=== PATIENT | male | born 1975 | race Caucasian/White ===

== ENCOUNTER 2025-07-13 08:00 | Inpatient (IN) | payer OTHER ==
[~2025-07-13] VITALS: Ht 175.3 cm; Wt 94.6 kg
[2025-07-13 13:55] VITALS: BP 112/88
[2025-07-13] MEDS ORDERED: Polyethylene Glycol 3350 17 gm PO PRN (16:10)
[2025-07-13] MEDS ORDERED: FLU VACC TS2025-26(6MOS UP)/PF 45 MCG/0.5 ML SYRINGE IM SCH (16:10)
[2025-07-13] MEDS ORDERED: Aluminum Hydroxide 320MG/5ML 473 ML PO PRN (16:10)
[2025-07-13] MEDS ORDERED: Ondansetron 4 MG SoluTab MM PRN (16:15)
--- NOTE | 2025-07-13 16:15 | NUR ---
ADMISSION SUMMARY PT ARRIVED TO [facility] AT 1255 COMING FROM [facility] VIA SECURE TRANSPORT. PT CHANGED INTO OUR GREEN SAFETY SCRUBS, SKIN AND HAIR CHECK COMPLETED WITH JOE Acosta, NO ISSUES IDENTIFIED, ALL WAS CLEAR. PT STATES HE LIVES IN A SOBER LIVING HOME THAT IS RAN BY THE REHAB WAS RECENTLY AT FOR FOUR MONTHS. HE ADMITS RELAPSING WITHIN THE LAST. LAST HE REMEMBERS WAS BEING AT A CLINIC ASKING HELP AND THEN THE POLICE SHOWED UP AND TOOK HIM TO THE HOSPITAL. PT STATES HE DOES NOT REMEMBER THAT HE WAS MAKING THREATS TO SHOOT UP HIS SENIOR LIVING AND BURN IT DOWN. HE ALSO VERBALIZED THAT HE DROVE TO AN OVERPASS WITH INTENT TO JUMP WITH A NOOSE BUT HE DIDN'T. PT STRONGLY DENIES SI/HI/AVH. HE IS COOPERATIVE, DISHEVELED IN APPEARANCE, A&Ox3. HE DENIES EVER HAVING A MENTAL HEALTH HISTORY AND DOES ENDORSE ETOH AND METH USE OVER THE YEARS. HE'S A 1 PACK A DAY SMOKER, HIGH SCHOOL GRADUATE, UNEMPLOYED. PT WAS ORIENTED TO THE UNIT AND STS UNDERSTANDING OF OUR Q15 MIN VISUAL SAFETY CHECKS
[2025-07-13 19:06] VITALS: BP 133/87
--- NOTE | 2025-07-14 04:57 | NUR ---
SHIFT SUMMARY: PATIENT IS A 50 YEAR OLD MALE WHO WAS ADMITTED TO THE [facility] ON 07/13/25 FOR PSYCHOSIS. HE PRESENTED NEEDING A SHAVE BUT NEWLY SHOWERED AND CLEAN. HE WAS A AND O X4, USED A MODERATE VOICE AND MADE APPROPRIATE EYE CONTACT. HE DESCRIBED HIS MOOD "CONFUSED, I DON'T REALLY KNOW WHY I'M HERE, BUT I'LL DO WHAT I NEED TO SO I CAN GO BACK HOME." HE DENIED SI, HI AND AVTH. HE PARTICIPATED IN SNACK AND WRAP UP GROUP, AND DID NOT HAVE ANY SCHEDULED EVENING MEDICATIONS, NOR DID HE REQUEST ANY PRNS. HE WAS COMPLIANT WITH CARES AND ABLE TO MAKE NEEDS KNOWN. HE WENT TO BED SHORTLY AFTER SNACK TIME AND WAS NOTED TO BE RESTING QUIETLY WITH EYES CLOSED AND RESPIRATIONS CONFIRMED FOR THE REMAINDER OF THE SHIFT. CONTINUING TO MONITOR FOR SAFETY WITH Q15 MINUTE CHECKS.
[2025-07-14 08:10] LABS: CHOL/HDL RATIO 5.5; Cholesterol 182 mg/dL (50-200); HDL Cholesterol 33 mg/dL (>39); LDL/HDL RATIO 3.7; Low Density Lipoprotein Chol 122 mg/dL (0-110); Triglycerides 133 mg/dL (30-160); Very Low Density Lipoprot Chol 26 mg/dL (6-32)
[2025-07-14] MEDS ORDERED: Multivitamins 1 Tab PO SCH (09:00)
[2025-07-14 09:07] VITALS: BP 130/90
--- NOTE | 2025-07-14 16:21 | NUR ---
INFO FOR [facility] JE[facility] CALLED, PT HAS THE FOLLOWING APPTS SET UP APPT 07/19/25 AT 8AM AT [facility] APPT 08/01/25 AT 2:30PM AT [address] [phone]
--- NOTE | 2025-07-14 17:34 | NUR ---
SHIFT SUMMARY PT WOKE EASILY PRIOR TO BREAKFAST THIS SHIFT AND STATED HE HAD A DECENT NIGHT OF SLEEP. HE IS ALERT AND ORIENTED WITH GOOD EYE CONTACT AND CLEAR SPEECH WITH NORMAL TONE, PRESENTABLE HYGIENE, HAS BEEN COOPERATIVE IN CARE AND COMPLIANT WITH MEDICAION. PT HAS PARTICIPATED IN MEALS/SNACKS/GROUPS. HE HAS DENIED SI/HI/AVH. HE HAD A CHANCE TO SPEAK TO HIS PCI FROM [facility] THIS MORNING. THIS RN HAS SPOKE TO HIS PCI WELL, HER NAME IS JERSON [phone], UPATED THE PT'S NMI FOR HER REPORT. PT HAS CONTINUED TO RECEIVED Q15 MIN VISUAL SAFETY CHECKS THROUGHOUT THE SHIFT.
[2025-07-14 20:21] VITALS: BP 140/95
--- NOTE | 2025-07-15 05:30 | NUR ---
SHIFT SUMMARY 50 YEAR-OLD MALE PRESENTS WELL GROOMED. HE IS ALERT AND ORIENTED. HE SPEAKS IN A CLEAR VOICE AND IN AN APPROPRIATE VOLUME. HE IS ABLE TO MAKE AND KEEP EYE CONTACT DURING CONVERSATIONS. AT THE TIME OF HIS ASSESSMENT, HE DESCRIBED HIS MOOD HOPEFUL AND POSITIVE. HE ALSO DENIED SI, HI, AND AVTH AT THAT TIME. HE ATTENDED SNACK AND DAY ROOM. HE WAS COMPLIANT WITH CARE AND MEDICATION ADMINISTRATION. HE DID NOT REQUEST ANY MEDICATIONS. HE CONTINUES TO BE MONITORED EVERY 15 MINUTES FOR WELLNESS AND SAFETY.
[2025-07-15 08:43] VITALS: BP 139/95
[2025-07-15 20:17] VITALS: BP 150/103
[2025-07-16 08:52] VITALS: BP 139/92
--- NOTE | 2025-07-16 16:51 | NUR ---
SHIFT SUMMARY PT IS AA&O TO ALL. HE IS PLEASANT AND COOPERATIVE WITH CRE. HE DENIES SI, AVH. HE REPORTS HIS MOOD IS GOOD, AFFECT IS CONGRUENT. HE IS ACTIVE ON THE MILIEU AND INTERACTING WELL WITH STAFF AND PEERS. PT IS NOT TAKING ANY MEDICATIONS AT THIS TIME. HE IS LOOKING FORWARD TO DISCHARGE. WILL CONTINUE POC
[2025-07-16 20:06] VITALS: BP 127/89
--- NOTE | 2025-07-17 05:44 | NUR ---
SHIFT SUMMARY 50 YEAR-OLD MALE PRESENTS WELL GROOMED. HE IS ALERT AND ORIENTED. HE SPEAKS IN A CLEAR VOICE AND IN AN APPROPRIATE VOLUME. HE IS ABLE TO MAKE AND KEEP EYE CONTACT DURING CONVERSATIONS. AT THE TIME OF HIS ASSESSMENT, HE DESCRIBED HIS MOOD "SOMEWHAT HAPPY". HE ALSO DENIED SI, HI, AND AVTH AT THAT TIME. HE ATTENDED SNACK AND DAY ROOM. HE WAS COMPLIANT WITH CARE AND MEDICATION ADMINISTRATION. HE DID NOT REQUEST ANY PRN MEDICATIONS. HE CONTINUES TO BE MONITORED EVERY 15 MINUTES FOR WELLNESS AND SAFETY.
[2025-07-17 07:53] VITALS: BP 117/84
--- NOTE | 2025-07-17 13:36 | NUR ---
DISCHARGE NOTE PT AxOx4. PLEASANT AND COOPERATIVE WITH CARE. PT IS DISCHARGING TO [facility] [place] CALLED [facility]. PT IS DENYING SI/HI AND AVTH AT TIME OF DISCHARGE. DISCHARGE INSTRUCTIONS DISCUSSED WITH HECTOR INCLUDING FOLLOW UP INFO WITH [facility]. PT REPORTS HE IS FAMILIAR WITH THE ORGANIZATION AND WILL CALL TO SET UP FOLLOW UP MENTAL HEALTH AND SUBSTANCE USE SERVICE SOON HE LEAVES THE [facility]. PT WAS DISCHARGED WITH NO MEDICATIONS. HE WAS ALSO PROVIDED PATIENT EDUCATION ON HIS DIAGNOSES. PT VERBALIZED UNDERSTANDING AND DENIED HAVING FURTHER QUESTIONS AT THIS TIME. BELONGINGS WERE RETURNED. SAFETY PLAN WAS COMPLETED WITH [employer]. PT'S TRANSPORT ARRIVED AT 1:12PM AND HE WAS SAFELY ESCORTED OUT OF [facility].
== END 2025-07-17 13:12 | disposition home or self-care (01) | DRG 897 ==
LOC: BHU 08:00
PROVIDERS: ADMIT Psychiatry & Neurology Psychiatry
DX: F15.20 Other stimulant dependence, uncomplicated (principal); R45.851 Suicidal ideations
CPT/HCPCS: 36415; 80061; 83036; A9270